=== PATIENT | male | born 1950 | race Caucasian/White ===

== ENCOUNTER 2017-03-07 07:04 | Day surgery (SDC) | payer OTHER, MEDICARE ==
[~2017-03-07 07:04] MED LIST: LACTATED RINGERS 1,000 ML IV SCH; LIDOCAINE 2% (PRES FREE) 5 ML VIAL ONE; PROPOFOL 40 ML IV ONE
[2017-03-07] MEDS ORDERED: LACTATED RINGERS 1,000 ML ONE (07:07)
[2017-03-07] MEDS ORDERED: IV START KIT ONE (07:07)
[2017-03-07] MEDS ORDERED: MIDAZOLAM HCL 1 MG/ML 2ML VIAL ONE (07:36)
--- NOTE | 2017-03-11 16:06 | SURGPATH ---
[facility] [address] [place] [id number] Patient Name: RAHEEM KENNEDY V. MR#: [id number] : 1950 Gender: M Specimen #: [id number] Collected: 03/07/2017 Received: 03/08/2017 Reported: 03/11/2017 Submitting Phys: JAZ MENDOZA [facility] Clinical History / Pre-Operative Diagnosis: History of colon polyps Specimen Source / Surgical Procedure Performed: Para-appendiceal polyps x2 Interpretation: COLON, PERIAPPENDICEAL, POLYPS, POLYPECTOMIES: - ONE FRAGMENT OF SESSILE SERRATED POLYP WITH LOW-GRADE DYSPLASIA - SECOND FRAGMENT OF TUBULAR ADENOMA Comment: This case was reviewed by Dr. Linus Peterson who concurs with the interpretation. Electronically Signed Out Radha Pedraza M.D. Gross Description: The specimen is received in a formalin filled container labeled with the patient's name and "periappendiceal polyp x2". Two polypoid canchola biopsies are 0.3 x 0.2 x 0.2 cm and 0.6 x 0.5 x 0.5 cm. The larger polyp is bisected. Totally embedded in one cassette. Naheed Adrian Microscopic Description: A bisected polyp is seen with filiform architecture, and areas of hyperplastic colonic mucosa with widening at the base of the crypts. Some areas show crowded glands with hyperchromatic epithelial cells. Adenomatous change extends to the cauterized edge, but margins are difficult to ascertain. No high-grade dysplasia or carcinoma is seen. A second separate fragment of tubular adenoma also seen. 1: 31827 D12.0
== END 2017-03-07 08:27 | disposition home or self-care (01) ==
LOC: SDC 07:04
PROVIDERS: ATTEND Internal Medicine Gastroenterology
PROC: 0DBH8ZZ Excision of Cecum, Via Natural or Artificial Opening Endoscopic (ICD-10-PCS; principal; 2017-03-07)
PROC: 0DBH8ZZ Excision of Cecum, Via Natural or Artificial Opening Endoscopic (ICD-10-PCS; 2017-03-07)
DX: D12.0 Benign neoplasm of cecum (principal); K57.30 Diverticulosis of large intestine without perforation or abscess without bleeding; Z79.899 Other long term (current) drug therapy; Z86.010 Personal history of colon polyps
CPT/HCPCS: 45385; J2250; J7120